=== PATIENT | female | born 1965 | race Caucasian/White ===

== ENCOUNTER 2018-06-28 00:50 | Emergency (ER) | payer OTHER ==
[~2018-06-28] VITALS: Ht 167.6 cm; Wt 60.3 kg
[2018-06-28 01:20] VITALS: BP 144/80
--- NOTE | 2018-06-28 02:07 | ED SKIN/ALLERGY COMPLAINT ---
History of Present Illness General Chief Complaint: Allergy Symptoms Stated Complaint: FACIAL SWELLING Source: patient, family, old records Exam Limitations: no limitations Vital Signs & Intake/Output Vital Signs & Intake/Output Vital Signs Date Time Temp Pulse Resp B/P B/P Pulse O2 O2 Flow FiO2 Mean Ox Delivery Rate 06/28 0138 98 Room Air Room Air 06/28 0120 98.2 78 16 144/80 98 Room Air Room Air 06/28 0052 96 Room Air Allergies Coded Allergies: No Known Allergies (06/28/18) Reconcile Medications Diphenhydramine HCl (Benadryl Allergy) 25 MG TABLET 1-2 TAB PO Q6P PRN allergy Famotidine (Pepcid) 20 MG TABLET 1 TAB PO BID PRN allergy Methylprednisolone. (Medrol) 4 MG TAB.DS.PK 0 PO SEE ADMIN CRITERIA allergy Triage Note: PT TO TRIAGE FOR ALERGIC REACTION TO AN UNKNOWN BITE WHILE SHE WAS LAYING IN BED. SIGNIFICANT SWELLING TO LEFT SIDE OF FACE. PT THROAT FEELS SCRATCHY BUT NO RESPIRAOTRY DISTRESS. SKIN COOL, AND PERFUSED Triage Nurses Notes Reviewed? yes Onset: Just prior to arrival Duration: minute(s):, constant, continues in ED Timing: recent history Severity: moderate, severe Location: face, feet Possible Factors: insect bite, insect sting No Modifying Factors: none Associated Symptoms: edema, rash, swelling/mass/lumps LMP (ages 10-50): post menopausal : No Patient currently breastfeeds: No HPI: Prior to admission patient suspects she was bitten by an insect on the left upper lip cheek and chin along with the left lateral foot. She denies fever chills nausea vomiting diarrhea abdominal pain chest pain shortness breath headache dysuria bleeding. Past History Travel History Traveled to [place] past 21 day No Medical History Any Pertinent Medical History? see below for history Neurological: NONE EENT: NONE Cardiovascular: RENAUDS DISEASE Respiratory: NONE Gastrointestinal: NONE Hepatic: NONE Renal: NONE Musculoskeletal: NONE Psychiatric: NONE Endocrine: NONE Blood Disorders: NONE Cancer(s): NONE UNIX DEVELOPER/Reproductive: NONE Surgical History Surgical History: non-contributory Psychosocial History What is your primary language Lao Tobacco Use: Never used ETOH Use: denies use Illicit Drug Use: denies illicit drug use Family History Hx Contributory? No Review of Systems Review of Systems Constitutional: Reports: no symptoms. EENTM: Reports: no symptoms. Respiratory: Reports: no symptoms. Cardiovascular: Reports: no symptoms. GI: Reports: no symptoms. Genitourinary: Reports: no symptoms. Musculoskeletal: Reports: no symptoms. Skin: Reports: see HPI. Neurological/Psychological: Reports: no symptoms. Hematologic/Endocrine: Reports: no symptoms. Immunologic/Allergic: Reports: no symptoms. All Other Systems: Reviewed and Negative Physical Exam Physical Exam General Appearance: well developed/nourished, alert, awake, anxious, mild distress Head: swelling (left upper lip cheek) Eyes: Bilateral: PERRL, EOMI. Ears, Nose, Throat: normal pharynx, normal ENT inspection, hearing grossly normal, puncture wound left upper lip Neck: normal inspection, supple Respiratory: normal breath sounds Cardiovascular: regular rate/rhythm Peripheral Pulses: 4+ carotid (R), 4+ carotid (L) Gastrointestinal: normal bowel sounds, soft, non-tender, no organomegaly Back: normal inspection, normal range of motion Extremities: normal range of motion, no edema, swelling, tenderness (left lateral foot) Neurologic/Psych: awake, alert, oriented x 3, normal mood/affect Reflexes: 2+: bicep (R), bicep (L). Skin: normal color, rash Skin Problem Location: face, lower extremities Skin Problem Character: rash, swelling, urticarial Lymphatic: no anterior cervical ron Progress Differential Diagnosis: abscess/cellulitis, allergic reaction, anaphylaxis, angioedema, contact dermatitis Plan of Care: Steroids Benadryl Pepcid Departure Departure Time of Disposition: 211 Disposition: HOME OR SELF CARE Condition: Stable Clinical Impression Primary Impression: Allergic reaction to insect sting Referrals: Bill PEREZ,Casie Lawson (PCP/Family) Departure Forms: Customer Survey General Discharge Information Prescriptions: Current Visit Scripts Methylprednisolone. (Medrol) 0 PO SEE ADMIN CRITERIA #1 PAC Diphenhydramine HCl (Benadryl Allergy) 1-2 TAB PO Q6P PRN allergy #30 TAB Ref 1 Famotidine (Pepcid) 1 TAB PO BID PRN allergy #10 TAB
[2018-06-28] MEDS ORDERED: MEDROL4 M2 PO (02:11)
[2018-06-28] MEDS ORDERED: PEPCID20 M1 PO (02:12)
[2018-06-28] MEDS ORDERED: BENADRYL ALLERG25 M2 PO (02:12)
== END 2018-06-28 02:19 ==
LOC: ERH 00:50
DX: S00.86XA Insect bite (nonvenomous) of other part of head, initial encounter (principal); S90.862A Insect bite (nonvenomous), left foot, initial encounter; W57.XXXA Bitten or stung by nonvenomous insect and other nonvenomous arthropods, initial encounter; Y92.89 Other specified places as the place of occurrence of the external cause; Y93.9 Activity, unspecified
CPT/HCPCS: 96374; 96375; J1200; J2930